=== PATIENT | male | born 1995 | race American Indian/Alaskan Native ===

== ENCOUNTER 2019-04-02 16:45 | Emergency (ER) | payer SELFPAY ==
[2019-04-02] MEDS ORDERED: BABY ASPIRIN PO ONE (16:50)
[2019-04-02] MEDS ORDERED: NACL 0.9% 1000 ML 1,000 ML IV ONE ×2 (16:50→19:51)
--- NOTE | 2019-04-02 16:56 | Emergency Department Report ---
ED Palpitations HPI - General Chief Complaint: Dyspnea/Respdistress Stated Complaint: ALAINA Time Seen by Provider: 04/02/19 16:50 Source: patient, EMS Mode of arrival: Stretcher Limitations: No Limitations - History of Present Illness Initial Comments: Patient is 24 years old male brought to the emergency room via EMS for evaluation of palpitation, started this morning. Patient stated that he had this symptoms twice before. Patient stated that he was using marijuana yesterday. Patient is also complaining of left-sided chest pain. Patient also complaining of mild shortness of breath. Patient denied any fever or chills. MD Complaint: rapid heart beat, "heart racing", palpitations -: This morning Context: occured during rest - Related Data Allergies Allergy/AdvReac Type Severity Reaction Status Date / Time No Known Allergies Allergy Unverified 04/02/19 16:48 ED Review of Systems ROS: Stated complaint: ALAINA Other details as noted in HPI Comment: All other systems reviewed and negative Constitutional: denies: chills, fever Respiratory: shortness of breath. denies: cough, SOB with exertion, SOB at res t, wheezing Cardiovascular: chest pain, palpitations. denies: dyspnea on exertion, orthopnea Gastrointestinal: denies: abdominal pain, nausea, vomiting, diarrhea, constipation, hematemesis, melena, hematochezia Musculoskeletal: denies: back pain Neurological: denies: headache, weakness, numbness, paresthesias, confusion, abnormal gait ED Past Medical Hx - Past Medical History Hx Diabetes: Yes - Social History Smoking Status: Current Every Day Smoker ED Physical Exam - General Limitations: No Limitations General appearance: alert, appears intoxicated - Head Head exam: Present: atraumatic, normocephalic, normal inspection - Eye Eye exam: Present: normal appearance - ENT ENT exam: Present: normal exam, normal orophraynx, mucous membranes moist - Neck Neck exam: Present: normal inspection, full ROM. Absent: tenderness, meningismus, lymphadenopathy, thyromegaly - Respiratory Respiratory exam: Present: normal lung sounds bilaterally - Cardiovascular Cardiovascular Exam: Present: regular rate, normal rhythm, normal heart sounds - GI/Abdominal GI/Abdominal exam: Present: soft, normal bowel sounds. Absent: distended, te nderness, guarding, rebound, rigid, organomegaly, mass, bruit, pulsatile mass, hernia - Extremities Exam Extremities exam: Present: normal inspection, full ROM, normal capillary refill. Absent: tenderness, pedal edema, joint swelling, calf tenderness - Back Exam Back exam: Present: normal inspection, full ROM. Absent: CVA tenderness (R), CVA tenderness (L), muscle spasm, paraspinal tenderness, vertebral tenderness - Neurological Exam Neurological exam: Present: alert, oriented X3, CN II-XII intact, normal gait, reflexes normal - Psychiatric Psychiatric exam: Present: normal mood - Skin Skin exam: Present: warm, intact, normal color ED Course Vital Signs 04/02/19 04/02/19 04/02/19 16:51 16:52 17:46 Temperature 98.8 F Pulse Rate 110 H 107 H Respiratory 17 18 13 Rate Blood Pressure 137/97 134/83 [Left] O2 Sat by Pulse 100 100 100 Oximetry ED Medical Decision Making - Lab Data Result diagrams: 04/02/19 16:57 04/02/19 16:57 - EKG Data -: EKG Interpreted by Md EKG shows normal: sinus rhythm Rate: tachycardia - EKG Data Interpretation: no acute changes - Radiology Data Radiology results: report reviewed Chest x-ray is unremarkable. - Medical Decision Making Patient is 24 years old male brought to the emergency room via EMS for evaluation of palpitation, started this morning. Patient stated that he had this symptoms twice before. Patient stated that he was using marijuana yesterday. Patient is also complaining of left-sided chest pain. Patient also complaining of mild shortness of breath. Patient denied any fever or chills. Patient EKG shows sinus tachycardia, no ST elevation or depression. Chest x-ray is negative for acute finding. Patient received normal saline. Patient stated that he feels much better. Patient had potassium is 2.9 patient given K-Dur milliequivalents. Patient advised to follow-up with his primary care physician in the next 2-3 days and to return to the ER if symptoms are not improved. Critical care attestation.: If time is entered above; I have spent that time in minutes in the direct care of this critically ill patient, excluding procedure time. ED Disposition Clinical Impression: Palpitation, Chest pain, Hypokalemia Disposition: TO HOME OR SELFCARE Is pt being admited?: No Condition: Stable Instructions: Chest Pain (ED), Palpitations (ED), Hypokalemia (ED) Referrals: JOYCE BORJA MD [Primary Care Provider] - 3-5 Days
[2019-04-02 17:30] LABS: Basophils % (Auto) 0.6 % (0.0-1.8); Eosinophils % (Auto) 0.6 % (0.0-4.3); Hematocrit 36.7 % (35.5-45.6); Hemoglobin 11.8 gm/dl (11.8-15.2); Lymphocytes # (Auto) 1.2 K/mm3 (1.2-5.4); Lymphocytes % (Auto) 14.6 % (13.4-35.0); Mean Corpuscular HGB Conc 32 % (32-34); Mean Corpuscular Volume 90 fl (84-94); Monocytes # (Auto) 0.7 K/mm3 (0.0-0.8); Monocytes % (Auto) 8.9 % (0.0-7.3); Platelet Count 218 K/mm3 (140-440); Red Blood Count 4.08 M/mm3 (3.65-5.03); Red Cell Distribution Width 18.9 % (13.2-15.2)
[2019-04-02 17:56] LABS: BUN/Creatinine Ratio 7; Blood Urea Nitrogen 7 mg/dL (9-20); Calcium 9.4 mg/dL (8.4-10.2); Hemolysis Index 5
--- NOTE | 2019-04-02 18:01 | XRay Report ---
CHEST 2 VIEWS INDICATION / CLINICAL INFORMATION: Chest Pain. COMPARISON: None available. FINDINGS: The lungs are well-inflated and clear. The cardiomediastinal silhouette is normal. No pleur al effusion or pneumothorax. No acute skeletal abnormality. IMPRESSION: Normal chest. Signer Name: Alexy Fine MD Signed: 04/02/2019 5:57 PM Workstation Name: [id number]
[2019-04-02 18:13] LABS: Bilirubin,Urine NEG (Negative); Blood,Urine NEG (Negative); Color,Urine Colorless (Yellow); Protein,Urine <15 mg/dL mg/dL (Negative); Urobilinogen,Urine < 2.0 mg/dL (<2.0); WBC,Urine < 1.0 /HPF (0.0-6.0)
[2019-04-02 18:34] LABS: Amphetamine Screen,Urine PRESUMPTIVE NEGATIVE; Benzodiazepines Screen,Urine PRESUMPTIVE NEGATIVE; Cocaine Screen,Urine PRESUMPTIVE NEGATIVE; Methadone Screen,Urine PRESUMPTIVE NEGATIVE; Opiate Screen,Urine PRESUMPTIVE NEGATIVE
[2019-04-02 18:50] LABS: Cannabinoid Screen,Urine PRESUMPTIVE POSITIVE
[2019-04-02] MEDS ORDERED: K-DUR PO ONE (19:16)
[2019-04-02 20:25] VITALS: BP 120/85
== END 2019-04-02 20:25 | disposition home or self-care (01) ==
LOC: ED 16:45
DX: R00.2 Palpitations (principal); R07.89 Other chest pain; E87.6 Hypokalemia; E11.9 Type 2 diabetes mellitus without complications; F17.200 Nicotine dependence, unspecified, uncomplicated
CPT/HCPCS: 36415; 71046; 80048; 80307; 81001; 82550; 83690; 84484; 85025; 93005; 93010; 99285; J7030; 80320; G0480